=== PATIENT | male | born 2000 | race Two or more races ===

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

== ENCOUNTER 2019-03-02 12:36 | Day surgery (SDC) | payer OTHER ==
[~2019-03-02] VITALS: Ht 167.6 cm; Wt 88.8 kg
[2019-03-02] VITALS (10 sets, daily range): BP systolic 99–122; BP diastolic 45–73; PULSE 52–62; RESP 13–25; Ht 167.6 cm; Wt 88.8 kg
[2019-03-02] MEDS ORDERED: LACTATED RINGER'S 1,000 ML IV SCH (13:30)
[2019-03-02] MEDS ORDERED: CEFAZOLIN 2 GM/50 ML (PMX) 50 ML IVPB ONE (13:30)
[2019-03-02] MEDS ORDERED: BACITRACIN/POLYMYXIN 28.35 GM OINT TOP ONE (13:58)
--- NOTE | 2019-03-02 13:58 | PREAC ---
Date/Time of Note Date/Time of Note DATE: 03/02/19 TIME: 13:57 Anesthesia Eval and Record Evaluation Time Pre-Procedure Interview DATE: 03/02/19 TIME: 13:57 Age 18 Sex male NPO: 8 hrs Preoperative diagnosis left great toe avulsion Planned procedure left great toe nail avulsion Past Medical History Past Medical History: None Surgery & Anesthesia Issues No known issue Meds Anticoagulation: No Beta Colby within 24 hr: No Reason Beta Colby not given: Pt. not on B-Colby No Active Prescriptions or Reported Meds Current Medications Cefazolin Sodium/ Dextrose 50 ml @ 100 mls/hr PRE-OP ONCE IVPB ; Start 03/02/19 at 13:30; Stop 03/02/19 at 13:59 Lactated Ringer's 1,000 ml @ 25 mls/hr Q24H IV Last administered on 03/02/19at 13:42; Admin Dose 25 MLS/HR; Start 03/02/19 at 13:30 Meds reviewed: Yes Allergies Coded Allergies: No Known Allergy (Unverified , 03/02/19) Allergies Reviewed: Yes Labs/Studies Labs Reviewed: Reviewed by anesthesiologist test: N/A Pre-procedure Exam Airway: Adequate mouth opening, Adequate thyromental dist Mallampati: Mallampati II Teeth: Normal Lung: Normal Heart: Normal ASA Physical Status ASA physical status: 2 Emergency: None Planned Anesthetic General/MAC: MAC Planned Pain Management Parenteral pain med Pre-operative Attestations Prior to commencing anesthesia and surgery, the patient was re-evaluated, there was verification of: *The patient's identity *The results of appropriate recent lab work and preoperative vital signs *The above evaluation not changing prior to induction *Anesthetic plan, risk benefits, alternative and complications discussed with patient/family; questions answered; patient/family understands, accepts and wishes to proceed. LEODAN CLINTON Mar 02, 2019 13:58
[2019-03-02] MEDS ORDERED: BUPIVACAINE 0.5% (SDV) 30 ML INJ ONE (14:24)
[2019-03-02] MEDS ORDERED: LIDOCAINE 1% (MPF) 30 ML INJ ONE (14:24)
[2019-03-02] MEDS ORDERED: FENTAnyl 50 MCG/ML VIAL ONE (14:24)
[2019-03-02] MEDS ORDERED: PROPOFOL 20 ML ONE (14:25)
[2019-03-02] MEDS ORDERED: LIDOCAINE 2% (SDV) 5 ML INJ ONE (14:25)
[2019-03-02] MEDS ORDERED: MIDAZOLAM 1 MG/ML 2 ML INJ ONE (14:25)
--- NOTE | 2019-03-02 14:40 | HPN ---
Date/Time of Note Date/Time of Note DATE: 03/02/19 TIME: 14:40 Interval H&P Admission Note Pt. seen H&P reviewed: No system changes KAROL BELTRAN DPM Mar 02, 2019 14:40
[2019-03-02] MEDS ORDERED: CEFAZOLIN 1 GM INJ ONE (14:53)
--- NOTE | 2019-03-02 15:29 | PAC ---
Date/Time of Note Date/Time of Note DATE: 03/02/19 TIME: 15:28 Post-Anesthesia Notes Post-Anesthesia Note Last documented vital signs Vital Signs Date Temp Pulse Resp B/P (MAP) Pulse Ox O2 O2 Flow FiO2 Time Delivery Rate 03/02/19 98.1 59 16 113/60 96 Room Air 1529 (77) Activity: WNL Respiratory function: WNL Cardiovascular function: WNL Mental status: Baseline Pain reasonably controlled: Yes Hydration appropriate: Yes Nausea/Vomiting absent: Yes LEODAN CLINTON Mar 02, 2019 15:29
[2019-03-02] MEDS ORDERED: OXYCODONE/ACETAMINOPHEN (5/325) TAB PO PRN ×2 (15:30)
[2019-03-02] MEDS ORDERED: EPHEDrine 25 MG/5 ML SYG IV PRN (15:30)
[2019-03-02] MEDS ORDERED: FENTAnyl 50 MCG/ML VIAL IV PRN ×2 (15:30)
[2019-03-02] MEDS ORDERED: DIPHENHYDRAMINE 50 MG INJ IV PRN (15:30)
[2019-03-02] MEDS ORDERED: MIDAZOLAM 1 MG/ML 2 ML INJ IV PRN (15:30)
[2019-03-02] MEDS ORDERED: ALBUTEROL 0.083% (NEB) 2.5 MG/3 ML AMP HHN PRN (15:30)
[2019-03-02] MEDS ORDERED: ONDANSETRON 4 MG INJ IV PRN (15:30)
[2019-03-02] MEDS ORDERED: MEPERIDINE 25 MG INJ IV PRN (15:30)
[2019-03-02] MEDS ORDERED: LABETALOL HCL 20MG INJ IV PRN (15:30)
[2019-03-02] MEDS ORDERED: KETOROLAC 30 MG INJ IV PRN (15:30)
[2019-03-02] MEDS ORDERED: hydrALAzine 20 MG INJ IV PRN (15:30)
--- NOTE | 2019-03-02 15:31 | OPR ---
Date/Time of Note Date/Time of Note DATE: 03/02/19 TIME: 15:25 Operative Report Procedure Date: Mar 02, 2019 Preoperative Diagnosis Ingrown toenail left big toe Paronychia left big toe Left big toe pain Postoperative Diagnosis Ingrown toenail left big toe Paronychia left big toe Left big toe pain Operation/Procedure Performed Partial nail avulsion medial nail fold left big toe Surgical matricectomy left big toe Surgeon see signature line Wet Finisher None Anesthesia Type: MAC Estimated Blood Loss: 0 - 10 ml's Transfusion none Specimen Nail and nail matrix left hallux. Grafts/Implants none Complications none Pt Condition Post Procedure: stable Disposition: PACU Indications This is a pleasant 18-year-old male patient who has been suffering with recurrent ingrown toenail of the left big toe medial nail fold recalcitrant to in office partial nail avulsion requiring surgical matricectomy and partial nail avulsion. Risks and complications of this type of surgery was discussed with patient in great detail. Risks and complications discussed include, but are not limited to, postoperative infection, postoperative pain, chronic pain and disability, hardware failure, failure of surgery to correct the problem, need for additional surgical procedures, toenail changes, onychomycosis, deep venous thrombosis, gait disturbance, problems with shoegear, limitation of activities, limb loss and loss of life. Patient understands the discussion and agrees to the procedure. An informed consent was obtained, signed and placed in the chart. No guarantee or warrantee was given or implied as to the outcome of the procedure either in verbal or written form. Procedure Description The patient was seen in the preoperative unit. The proposed surgery was discussed with patient in great detail. Risks and complications of this type of surgery was discussed with patient in great detail. Opportunity was given to patient to ask questions and all questions were answered. The patient acknowledges understanding of the discussion. An informed consent was then obtained, signed and placed in the chart. Patient was taken to the operating room and was placed on the operating table in the supine position. All bony prominences were padded properly. A timeout was called by the circulating nurse. Everyone in the operating room was agreeable to the timeout. The patient was then placed under sedation by the anesthesiologist. I injected the left big toe with 7 cc of a one-to-one mixture of 2% lidocaine plain and 0.5% Marcaine plain. The left foot was scrubbed, prepped, and draped in the usual aseptic manner. Attention was directed to the left foot. A Tourni-cot was applied to the left hallux. The medial hyponychium was incised with a 1 cm incision using a #15 blade down to the matrix. A [place] elevator was inserted under the distal medial nail plate and the nail was freed from the nail bed all the way to the hypony chium. A double-action bone cutter was used to cut the medial nail plate and the nail plate was then removed and passed the back table. Dissection of the matrix was completed. Bleeders were cauterized as necessary. The nail matrix was sharply debrided and passed to the back table. The area of the matrix was then cauterized with electrocautery. The wound was flushed with copious muscle sterile normal saline. The skin was closed using 5-0 Monocryl in simple suture technique. Sterile dressing was applied to the left big toe. The patient tolerated procedure and anesthesia well. The patient was transferred to the recovery room with vital signs stable and vascular status intact to left lower extremity. The patient will be discharged home after postoperative monitoring. Postoperative orders were written. Patient will be followed up in the office in 1 week. KAROL BELTRAN DPM Mar 02, 2019 15:30
== END 2019-03-02 17:29 | disposition home or self-care (01) ==
LOC: SDS 12:36
PROVIDERS: ATTEND Podiatrist Foot & Ankle Surgery
DX: L60.0 Ingrowing nail (principal); L03.032 Cellulitis of left toe
CPT/HCPCS: 11750; 88304; J0690; J2250; J3010; Z7512; Z7610